=== PATIENT | female | born 1955 | race Caucasian/White ===

== ENCOUNTER 2023-03-16 20:46 | Inpatient (IN) | payer MEDICARE ==
[~2023-03-16] VITALS: Ht 160 cm; Wt 94.3 kg
[2023-03-16] MEDS ORDERED: ACETAMINOPHEN 325 MG TABLET PO ONE (21:30)
[2023-03-16] MEDS ORDERED: IV NS 0.9% 1,000 ML BAG IV ONE (21:30)
[2023-03-16] MEDS ORDERED: ACETAMINOPHEN ES 500 MG TABLET ONE (21:31)
[2023-03-16 21:51] LABS: BASOPHILS % (AUTO) 0.4 % (0.0-2.0); HEMATOCRIT 38 % (33-45); HEMOGLOBIN 12.2 g/dL (11.5-14.8); LYMPHOCYTES # (AUTO) 0.7 K/uL (0.8-4.8); LYMPHOCYTES % (AUTO) 5.9 % (20.0-44.0); MEAN CORPUSCULAR HEMOGLOBIN 26 PG (26.0-33.0); MEAN CORPUSCULAR HGB CONC 32 g/dl (31.0-36.0); MEAN CORPUSCULAR VOLUME 81 fL (82-100); MONOCYTES # (AUTO) 0.4 K/uL (0.1-1.30); MONOCYTES % (AUTO) 3.9 % (2.0-12.0); NEUTROPHILS # (AUTO) 10.3 K/uL (1.8-8.9); NEUTROPHILS % (AUTO) 89.8 % (43.0-81.0); PLATELET COUNT (AUTO) 280 K/uL (150-450); RED BLOOD CELL COUNT(AUTO) 4.64 MIL/uL (4.0-5.2); RED CELL DISTRIBUTION WIDTH 16.3 % (11.5-15.0); WHITE BLOOD COUNT (AUTO) 11.5 K/uL (4.3-11.0)
[2023-03-16 22:05] LABS: INR 1.11 (0.91-1.10); PARTIAL THROMBOPLASTIN TIME 42.4 SEC (24.3-34.3); PROTHROMBIN TIME 11.6 SECS (9.2-11.1)
[2023-03-16 22:16] LABS: CALCIUM, SERUM 9.8 mg/dL (8.5-10.1); CARBON DIOXIDE 24 mmol/L (21-32); CHLORIDE 102 mmol/L (98-107); CREATININE 1.7 mg/dL (0.6-1.3); GLUCOSE 122 mg/dL (74-106); POTASSIUM 3.1 mmol/L (3.5-5.1); SODIUM SERUM 141 mmol/L (136-145); UREA NITROGEN, BLOOD 21 mg/dL (7-18)
[2023-03-16 22:21] LABS: ALANINE AMINOTRANSFERASE 21 U/L (12-78); ALBUMIN 3.7 g/dL (3.4-5.0); ALKALINE PHOSPHATASE 90 U/L (46-116); ASPARTATE AMINOTRANSFERASE 15 U/L (15-37); BILIRUBIN,DIRECT 0.2 mg/dL (0.0-0.2); BILIRUBIN,TOTAL 0.8 mg/dL (0.2-1.0)
[2023-03-16 22:29] LABS: LACTIC ACID 1.6 mmol/L (0.4-2.0)
[2023-03-16 22:34] LABS: ACETONE, SERUM NEGATIVE (NEGATIVE)
[2023-03-16 22:46] LABS: SERUM AMMONIA 10 umol/L (11-32)
[2023-03-16] MEDS ORDERED: POTASSIUM CHLORIDE 20 MEQ TAB.PRT.SR PO ONE ×2 (23:00→23:12)
[2023-03-16 23:17] LABS: APPEARANCE,URINE SLIGHTLY CLOUDY (CLEAR); BILIRUBIN,URINE NEGATIVE (NEGATIVE); BLOOD, URINE 2+ Ery/uL (NEGATIVE); COLOR,URINE DARK YELLOW (YELLOW); KETONES,URINE NEGATIVE (NEGATIVE); LEUKOCYTE ESTERASE ,URINE 2+ (NEGATIVE); NITRITE, URINE NEGATIVE (NEGATIVE); PH,URINE 5.5 (5.0-8.0); PROTEIN,URINE 2+ mg/dl (NEGATIVE); UGLUCOSE NEGATIVE (NEGATIVE); UROBILINOGEN,URINE 0.2 EU/dL (0.2)
[2023-03-16 23:21] LABS: ADD URINE CULTURE YES; BACTERIA,URINE Moderate /HPF (None Seen); SQUAMOUS EPITHELIAL CELL,UR Rare /HPF (None Seen)
[2023-03-16] MEDS ORDERED: CEFTRIAXONE 1GM BAG (ER ONLY) 1 GM/50 ML PIGGYBACK IV ONE (23:30)
[2023-03-16] MEDS ORDERED: IBUPROFEN 400 MG TABLET PO ONE (23:30)
[2023-03-16] MEDS ORDERED: CEFTRIAXONE 1 G VIAL ONE (23:31)
[2023-03-16] MEDS ORDERED: IBUPROFEN 400 MG TABLET ONE (23:31)
[2023-03-17] MEDS ORDERED: ACETAMINOPHEN 325 MG TABLET PO PRN (01:00)
[2023-03-17] MEDS ORDERED: ALBUTEROL FS 2.5 MG/3 ML VIAL.NEB NEB PRN (01:30)
[2023-03-17] MEDS ORDERED: AZITHROMYCIN 500 MG VIAL ONE ×2 (01:40→22:22)
[2023-03-17] MEDS: AZITHROMYCIN 500 MG in IV D5W 250 ML IV SCH ×2 (01:45→22:28)
[2023-03-17 02:00] VITALS: BP 135/75; TEMP 98.5; O2SAT 97
[2023-03-17 08:00] VITALS: BP 130/72; TEMP 98.5; O2SAT 97
[2023-03-17] MEDS ORDERED: ATEN50TA PO (08:12)
[2023-03-17] MEDS ORDERED: BENA40TA8 PO (08:12)
[2023-03-17] MEDS ORDERED: HYDR25TA4 PO (08:12)
[2023-03-17] MEDS ORDERED: INSU100V7 SQ (08:12)
[2023-03-17] MEDS ORDERED: METF-442 PO (08:12)
[2023-03-17] MEDS ORDERED: SITA100T PO (08:12)
[2023-03-17] MEDS ORDERED: GLIP10TA11 PO (08:12)
[2023-03-17] MEDS ORDERED: ATOR20TA PO (08:12)
[2023-03-17] MEDS ORDERED: AMLO10TA4 PO (08:12)
[2023-03-17] MEDS ORDERED: ALBUTEROL SULFATE 8 GM HFA.AER.AD IH PRN (08:30)
[2023-03-17] MEDS ORDERED: CEFTRIAXONE 1 G in IV D5W 50 ML IV SCH (09:00)
[2023-03-17 16:00] VITALS: BP 130/72; TEMP 98.5; O2SAT 97
[2023-03-17] MEDS: ASPIRIN EC 81 MG TABLET.DR PO SCH (17:25)
[2023-03-17] MEDS: ENOXAPARIN SODIUM 30 MG/0.3 ML DISP.SYRIN SQ SCH (18:25)
[2023-03-17] MEDS: CEFTRIAXONE 1 G in IV D5W 50 ML IV SCH (20:02)
[2023-03-17] MEDS: IBUPROFEN 400 MG TABLET PO PRN (20:34)
[2023-03-18] VITALS: BP 151/67; TEMP 100.9; O2SAT 94
[2023-03-18 06:30] LABS: BASOPHILS % (AUTO) 0.6 % (0.0-2.0); EOSINOPHILS % (AUTO) 0.3 % (0.0-6.0); HEMATOCRIT 34 % (33-45); HEMOGLOBIN 11.1 g/dL (11.5-14.8); LYMPHOCYTES # (AUTO) 1.3 K/uL (0.8-4.8); LYMPHOCYTES % (AUTO) 25.4 % (20.0-44.0); MEAN CORPUSCULAR HEMOGLOBIN 27 PG (26.0-33.0); MEAN CORPUSCULAR HGB CONC 33 g/dl (31.0-36.0); MEAN CORPUSCULAR VOLUME 82 fL (82-100); MONOCYTES # (AUTO) 0.5 K/uL (0.1-1.30); MONOCYTES % (AUTO) 8.6 % (2.0-12.0); NEUTROPHILS # (AUTO) 3.4 K/uL (1.8-8.9); NEUTROPHILS % (AUTO) 65.1 % (43.0-81.0); PLATELET COUNT (AUTO) 198 K/uL (150-450); RED BLOOD CELL COUNT(AUTO) 4.13 MIL/uL (4.0-5.2); RED CELL DISTRIBUTION WIDTH 16.1 % (11.5-15.0); WHITE BLOOD COUNT (AUTO) 5.3 K/uL (4.3-11.0)
[2023-03-18 06:51] LABS: ALBUMIN 2.9 g/dL (3.4-5.0); BILIRUBIN,TOTAL 0.5 mg/dL (0.2-1.0); CALCIUM, SERUM 8.8 mg/dL (8.5-10.1); POTASSIUM 3.5 mmol/L (3.5-5.1); TOTAL PROTEIN, SERUM 6.8 g/dL (6.4-8.2)
[2023-03-18 06:59] LABS: MAGNESIUM 1.7 mg/dL (1.8-2.4); PHOSPHORUS 2.5 mg/dL (2.5-4.9)
[2023-03-18] MEDS: ASPIRIN EC 81 MG TABLET.DR PO SCH (08:19)
[2023-03-18 09:00] VITALS: BP 146/67; TEMP 100.8; O2SAT 96
[2023-03-18] MEDS ORDERED: MAGNESIUM OXIDE 400 MG TABLET PO ONE (09:00)
[2023-03-18] MEDS: IBUPROFEN 400 MG TABLET PO PRN ×2 (11:24→21:52)
[2023-03-18] MEDS ORDERED: DEXTROSE 50%-WATER 50 ML DISP.SYRIN IV PRN (11:30)
[2023-03-18] MEDS: BLOOD SUGAR DIAGNOSTIC 1 EACH STRIP IN SCH ×3 (11:44→21:49)
[2023-03-18 11:50] VITALS: TEMP 98.5
[2023-03-18] MEDS: INSULIN REGULAR, HUMAN 100 UNIT/ML 3 ML VIAL SQ PRN (17:00)
[2023-03-18] MEDS: ENOXAPARIN SODIUM 30 MG/0.3 ML DISP.SYRIN SQ SCH (17:06)
[2023-03-18 17:32] VITALS: BP 165/83; TEMP 98.3
[2023-03-18] MEDS: HYDROCHLOROTHIAZIDE 25 MG TABLET PO SCH (18:20)
[2023-03-18] MEDS: ATENOLOL 50 MG TABLET PO SCH ×2 (18:21→18:26)
[2023-03-18] MEDS: AMLODIPINE BESYLATE 5 MG TABLET PO SCH (18:21)
[2023-03-18] MEDS: CEFTRIAXONE 1 G in IV D5W 50 ML IV SCH (20:06)
[2023-03-18 20:55] VITALS: BP 178/53; TEMP 98.5; O2SAT 99
[2023-03-18] MEDS: AZITHROMYCIN 500 MG in IV D5W 250 ML IV SCH (21:21)
[2023-03-18] MEDS: *INSULIN REGULAR(HUMULIN R)HUM 100 UNIT/ML VIAL SQ PRN (21:50)
[2023-03-18] MEDS: hydrALAZINE HCL IV 20 MG VIAL IV PRN (21:51)
[2023-03-19 04:42] VITALS: BP 174/90; TEMP 98.1; O2SAT 96
[2023-03-19] MEDS: hydrALAZINE HCL IV 20 MG VIAL IV PRN ×3 (04:43→20:52)
[2023-03-19 06:41] LABS: CALCIUM, SERUM 9.7 mg/dL (8.5-10.1); MAGNESIUM 1.9 mg/dL (1.8-2.4); POTASSIUM 3.4 mmol/L (3.5-5.1)
[2023-03-19 07:30] VITALS: BP 169/72; TEMP 98.4; O2SAT 96
[2023-03-19] MEDS: BLOOD SUGAR DIAGNOSTIC 1 EACH STRIP IN SCH ×4 (08:21→22:12)
[2023-03-19] MEDS: INSULIN REGULAR, HUMAN 100 UNIT/ML 3 ML VIAL SQ PRN ×3 (08:45→17:04)
[2023-03-19] MEDS: AMLODIPINE BESYLATE 5 MG TABLET PO SCH (08:47)
[2023-03-19] MEDS: HYDROCHLOROTHIAZIDE 25 MG TABLET PO SCH (08:48)
[2023-03-19] MEDS: ASPIRIN EC 81 MG TABLET.DR PO SCH (08:48)
[2023-03-19] MEDS: BENAZEPRIL HCL 20 MG TABLET PO SCH (08:48)
[2023-03-19] MEDS: SPIRONOLACTONE 25 MG TABLET PO SCH (08:49)
[2023-03-19] MEDS ORDERED: POTASSIUM CHLORIDE 20 MEQ TAB.PRT.SR PO ONE (09:00)
[2023-03-19 09:21] VITALS: BP 169/72; TEMP 98.4; O2SAT 96
[2023-03-19 16:00] VITALS: BP 166/73; TEMP 98.7; O2SAT 97
[2023-03-19 16:18] VITALS: BP 166/73; TEMP 98.7; O2SAT 97
[2023-03-19] MEDS: glipiZIDE 5 MG TABLET PO SCH (16:52)
[2023-03-19] MEDS: ATENOLOL 50 MG TABLET PO SCH (16:53)
[2023-03-19] MEDS: ENOXAPARIN SODIUM 30 MG/0.3 ML DISP.SYRIN SQ SCH (17:01)
[2023-03-19 20:00] VITALS: BP 167/76; TEMP 98.9; O2SAT 94
[2023-03-19] MEDS: CEFTRIAXONE 1 G in IV D5W 50 ML IV SCH (20:32)
[2023-03-19] MEDS ORDERED: AZITHROMYCIN 250 MG TABLET PO SCH (21:00)
[2023-03-19] MEDS ORDERED: ATORVASTATIN 10 MG TABLET PO SCH (22:00)
[2023-03-19] MEDS: *INSULIN REGULAR(HUMULIN R)HUM 100 UNIT/ML VIAL SQ PRN (22:15)
[2023-03-20 04:00] VITALS: BP 140/62; TEMP 98.9; O2SAT 93
[2023-03-20 07:07] LABS: PTH, INTACT 64 pg/mL (15-65)
[2023-03-20 08:00] VITALS: BP 156/82; TEMP 98.4; O2SAT 97
[2023-03-20] MEDS: BLOOD SUGAR DIAGNOSTIC 1 EACH STRIP IN SCH ×3 (08:11→16:56)
[2023-03-20] MEDS: glipiZIDE 5 MG TABLET PO SCH ×2 (08:19→16:58)
[2023-03-20] MEDS: ASPIRIN EC 81 MG TABLET.DR PO SCH (08:19)
[2023-03-20] MEDS: SPIRONOLACTONE 25 MG TABLET PO SCH (08:19)
[2023-03-20] MEDS: HYDROCHLOROTHIAZIDE 25 MG TABLET PO SCH (08:19)
[2023-03-20] MEDS: AMLODIPINE BESYLATE 5 MG TABLET PO SCH (08:20)
[2023-03-20] MEDS: BENAZEPRIL HCL 20 MG TABLET PO SCH (08:20)
[2023-03-20] MEDS: ATENOLOL 50 MG TABLET PO SCH (08:20)
[2023-03-20] MEDS: INSULIN REGULAR, HUMAN 100 UNIT/ML 3 ML VIAL SQ PRN ×3 (08:21→16:56)
[2023-03-20] MEDS ORDERED: AMLODIPINE BESYLATE 10 MG TABLET PO SCH (09:00)
[2023-03-20] MEDS ORDERED: ATENOLOL 50 MG TABLET PO SCH (09:00)
[2023-03-20] MEDS ORDERED: BENAZEPRIL HCL 20 MG TABLET PO SCH (09:00)
[2023-03-20] MEDS ORDERED: LINAGLIPTIN 5 MG TABLET PO SCH (09:00)
[2023-03-20 09:08] LABS: *SPE A/G RATIO 0.9 (0.7-1.7); *SPE ALBUMIN 2.8 g/dL (2.9-4.4); *SPE ALPHA-1-GLOBULIN 0.3 g/dL (0.0-0.4); *SPE M-SPIKE Not Observed g/dL (Not Observed); *SPE PROTEIN TOTAL 5.8 g/dL (6.0-8.5); *SPEGAMMA GLOBULIN 0.7 g/dL (0.4-1.8)
[2023-03-20] MEDS ORDERED: AMOX-430 PO (12:02)
[2023-03-20 16:00] VITALS: BP 155/73; TEMP 98; O2SAT 98
== END 2023-03-20 18:45 | disposition home or self-care (01) | DRG 177 ==
LOC: ER 20:58 → TELE1 03-17 01:11 → MEDSG1 03-17 01:25
PROVIDERS: ADMIT Nurse Practitioner Acute Care; ATTEND Internal Medicine
DX: U07.1 COVID-19 (principal); N17.0 Acute kidney failure with tubular necrosis; N39.0 Urinary tract infection, site not specified; I13.10 Hypertensive heart and chronic kidney disease without heart failure, with stage 1 through stage 4 chronic kidney disease, or unspecified chronic kidney disease; E87.6 Hypokalemia; N18.9 Chronic kidney disease, unspecified; E11.22 Type 2 diabetes mellitus with diabetic chronic kidney disease; E78.00 Pure hypercholesterolemia, unspecified; Z88.6 Allergy status to analgesic agent; E66.01 Morbid (severe) obesity due to excess calories; Z68.36 Body mass index [BMI] 36.0-36.9, adult; N13.9 Obstructive and reflux uropathy, unspecified; Z87.440 Personal history of urinary (tract) infections
CPT/HCPCS: 36415; 70450-TC; 71045-TC; 80048-TC; 80053-TC; 80076-TC; 81001; 82010-TC; 82140-TC; 82550-TC; 82962-TC; 83605-TC; 83735-TC; 83970; 84100-TC; 84155; 84165; 84484-TC; 85025-TC; 85378-TC; 85730-TC; 86140-TC; 87040-TC; 87086-TC; A4223; C9803; G0378; J0360; J0456; J0696; J1650; J1815; J7030; J7050; J7060